=== PATIENT | female | born 1960 | race Caucasian/White ===

== ENCOUNTER 2018-02-13 14:14 | Outpatient (CLI) | payer MEDICARE, BC | END 2018-02-13 14:15 | disposition home or self-care (01) | LOC: BICRAD 14:14 | PROVIDERS: ATTEND Internal Medicine Gastroenterology | DX: R13.10 Dysphagia, unspecified (principal); R05 Cough | CPT/HCPCS: 71046 ==

== ENCOUNTER → 2018-02-26 | Day surgery (SDC) | payer MEDICARE, BC ==
--- NOTE | 2018-02-26 12:02 | RAD ---
MODIFIED BARIUM SWALLOW WITH SPEECH THERAPIST: HISTORY: Gastroesophageal reflux disease and oropharyngeal dysphagia. FINDINGS/IMPRESSION: A modified barium swallow was performed by the speech therapist. No aspiration or penetration was se en during the examination. Please see dedicated speech therapist report for specific findings and re commendations. POS: [facility]
== END ==
LOC: RAD 09:09
PROVIDERS: ATTEND Internal Medicine Gastroenterology
DX: I69.091 Dysphagia following nontraumatic subarachnoid hemorrhage (principal); R13.12 Dysphagia, oropharyngeal phase; K21.9 Gastro-esophageal reflux disease without esophagitis
CPT/HCPCS: 74230; G8996-GN-CJ; G8997-GN-CI

== ENCOUNTER 2019-07-27 12:57 | Outpatient (CLI) | payer MEDICARE, BC ==
--- NOTE | 2019-07-27 13:12 | RAD ---
RADIOGRAPH CHEST 2 VIEWS: DATE: 07/27/2019 HISTORY: 59-year-old female with dyspnea FINDINGS: There is no airspace density, pulmonary edema, pleural effusion, pneumothorax, or cardiomegaly. IMPRESSION: No acute cardiopulmonary findings.
== END 2019-07-27 12:58 | disposition home or self-care (01) ==
LOC: RAD 12:57
PROVIDERS: ATTEND Internal Medicine Critical Care Medicine
DX: R06.00 Dyspnea, unspecified (principal)
CPT/HCPCS: 71046

== ENCOUNTER 2024-10-19 08:19 | Outpatient (CLI) | payer MEDICARE | END 2024-10-19 08:20 | disposition home or self-care (01) | LOC: ULT 08:19 | PROVIDERS: ATTEND Internal Medicine Nephrology | DX: I13.10 Hypertensive heart and chronic kidney disease without heart failure, with stage 1 through stage 4 chronic kidney disease, or unspecified chronic kidney disease (principal); E11.22 Type 2 diabetes mellitus with diabetic chronic kidney disease; N18.9 Chronic kidney disease, unspecified; K21.9 Gastro-esophageal reflux disease without esophagitis; R80.9 Proteinuria, unspecified; E78.5 Hyperlipidemia, unspecified; N39.0 Urinary tract infection, site not specified; M19.90 Unspecified osteoarthritis, unspecified site; E03.9 Hypothyroidism, unspecified | CPT/HCPCS: 76770; 93975 ==